=== PATIENT | male | born 1955 | race Caucasian/White ===

== ENCOUNTER 2020-06-02 14:39 | Emergency (ER) | payer OTHER, SELFPAY ==
[2020-06-02] VITALS (39 sets, daily range): BP systolic 124–147; BP diastolic 76–89; PULSE 79–110; RESP 10–27; TEMP 37; O2SAT 94–99
--- NOTE | 2020-06-02 14:30 | RT.EKG_ITS ---
APPROVED REPORT Exam: Resting ECG Patient Location: E HR:106 bpm ECG Measurements Heart Rate 106 AXIS NE 101 P 57 QRSd 108 QRS -60 QT 332 T 73 QTc 442 Conclusion Sinus tachycardia. Left anterior fascicular block. Probable left ventricular hypertrophy.
--- NOTE | 2020-06-02 15:00 | DI.RAD_ITS ---
EXAM: XR CHEST 2V PA LATERAL CLINICAL HISTORY: gen weakness, high glucose. TECHNIQUE: 2D digital imaging was performed. COMPARISON: CR LEFT SHOULDER COMPLETE from 04/30/2016 FINDINGS: Heart size is normal. The mediastinum is not widened. Lungs are clear. No infiltrates nor pleural effusions. IMPRESSION: No acute pulmonary findings. DATA REPOSITORY: RADIATION DOSE DELIVERED:
--- NOTE | 2020-06-02 15:10 | W.ED.GENAD ---
Discharge Plan Disposition Patient Disposition: HOME Condition: Stable Discharge Details Clinical Impression: Diabetes mellitus Primary Care Provider: None,None ED Provider: Brad Santiago Home Meds and New Rx's Prescriptions: New metformin 500 mg tablet 500 mg PO DAILY Qty: 30 RF: 0 cephalexin 500 mg capsule 500 mg PO TID 7 Days Qty: 21 RF: 0 Discharge Instructions Additional Instructions: I recommended and offered admission to the hospital for you which you have declined. We will ask our care management to ensure short-term follow-up for you for recheck in clinic. We will also arrange dietary consultation for you so that you may learn more about managing diabetes. Begin Metformin once daily with the evening meal. Take antibiotics as prescribed. Return to the ER for any acute concerns. Medical Decision Making 64-year-old male who states has not seen a physician in 30 years. Presents on referral from work where he was weak and seemed mildly confused. He states he has had a 10 pound weight loss over a few weeks time, increased thirst, increased frequency of urination up to every 2 hours in the daytime. Patient seen in urgent care where he was reported to be confused. He was brought to the ER by private vehicle. He arrives to the ER afebrile, blood pressure 124/84, pulse approximately 110. Most consistent with new presentation of diabetes. Must exclude dehydration, acidosis, underlying inciting infection. Additionally, patient was reported to be confused and merits a CT scan of his head. Patient IV access established, fluid bolus was initiated, referred for laboratory testing, EKG, screening chest x-ray and head CT. Diagnostics reveal no acute findings of the chest and no acute intracranial abnormality. White count 9, hematocrit 33, platelets 255. Sodium 123, potassium 4.6, chloride 88, bicarb 25, BUN 16, creatinine 1.1, glucose 331, hemoglobin A1c 10.4. Troponin negative. Urinalysis with positive nitrites, positive ketones, positive leuk esterase, no epithelial cells and numerous red and white blood cells. Culture is pending. Discussed with patient that I recommend admission for further management and evaluation. He categorically states he is unwilling to be admitted. Following 2 L of fluid, electrolytes were rechecked with improvement of his glucose and slight increase of sodium.. Patient's weight and age I do feel this is consistent with type 2 diabetes mellitus. I again recommended admission for the patient and he again declined. He states he has follow-up paperwork to establish primary care and we will ask our care management team to arrange a short-term follow-up within the next few days. We will also arrange for dietary/nutrition consultation. I will begin him on Metformin 500 mg once daily with the evening meal. He has a UTI for which she was given Rocephin and I will place him on a course of Keflex. Discussed with him the importance of short-term follow-up and to return to the ER for any acute concerns. HPI General Mode of arrival: ambulatory. Date/Time Provider Initiated Documentation: 06/02/20 14:41. Limitations to Documentation: no limitations. Information obtained by: patient. History of Present Illness 64 year old M presents to the emergency department with the chief complaint of Generalized weakness, weight loss, increased thirst, described as moderate, Quality is described as constant, Patient started experiencing this day(s) and it has been constant. No relieving factors improve symptom(s), No exacerbating factors reported . Patient notes other (Increased thirst. 10 pound weight loss. Nocturia. Increased frequency of urination during the day). Patient did receive the following treatments prior to arrival, none Related Data Home Medications Medication Instructions Recorded Confirmed cephalexin 500 mg PO TID 7 Days #21 cap 06/02/20 metformin 500 mg PO DAILY #30 tab 06/02/20 Previous Rx's Medication Instructions Recorded cephalexin 500 mg PO TID 7 Days #21 cap 06/02/20 metformin 500 mg PO DAILY #30 tab 06/02/20 Allergies Allergy/AdvReac Type Severity Reaction Status Date / Time aspirin Allergy Unverified 06/02/20 14:52 General Stated Complaint: Diabetes ADEBAYO: 3 Review of Systems Narrative: No fever, chills, cough. Denies abdominal pain. 6 systems reviewed and otherwise negative [facility]LY [facility] Social History Smoking/Tobacco Use Status: Never Smoking risk assessment performed?: Yes Alcohol Intake: never Substance use type: does not use Do you feel safe at home: Yes Do you feel safe in your relationship?: Yes Exam Narrative Exam Narrative: GEN: awake, alert, oriented 3. Pleasant, well groomed, interactive. HEAD: Normocephalic, atraumatic ENT: Mucous membranes dry, oropharynx unremarkable, External ear exam unremarkable EYES: PERRL, EOMI NECK: Full ROM, no ALINA, no menigismus CHEST/RESP: Nontender, clear to auscultation bilateral, no wheeze/rhonchi/rales CARDIOVASCULAR: Regular and tachycardic, no murmur, rub yen. 2+ Rad pulse bilateral ABDOMEN: Soft, nontender, no mass. +Bowel sounds. Testes descended bilaterally, mild scrotal erythema, no perineal irritation. Patient circumcised. EXT: Full ROM, no significant edema, no rash Neuro: Grossly normal neurologic exam, conversant, interactive. Psych: Speech fluent, thoughts congruent, affect normal Course Vital Signs Vital signs: Vital Signs Temperature 37 C 06/02/20 14:45 Pulse 110 H 06/02/20 14:45 Respiratory Rate 16 06/02/20 14:45 Blood Pressure 124/84 06/02/20 14:45 Pulse Oximetry 98 06/02/20 14:45 Temperature 37 C 06/02/20 14:45 Temperature Source Skin 06/02/20 14:45 Pulse 110 H 06/02/20 14:45 Respiratory Rate 16 06/02/20 14:45 Respiratory Effort Non-Labored 06/02/20 14:45 Blood Pressure 124/84 06/02/20 14:45 Blood Pressure Position Sitting 06/02/20 14:45 Pulse Oximetry 98 06/02/20 14:45 Oxygen Delivery Method Room Air 06/02/20 14:45 Oxygen Flow Rate 0 06/02/20 14:45 Pain Level 3 06/02/20 14:45
[2020-06-02 15:13] LABS: Abs Immature Grans 0.06 10^3/uL (0.0-0.06); Absolute Basophil Count 0.02 10^3/uL (0.0-0.2); Absolute Eosinophil Count 0.01 10^3/uL (0.0-0.7); Absolute Monocyte Count 0.54 10^3/uL (0.1-0.8); Absolute Neutrophil Count 8.17 10^3/uL (1.2-6.7); Basophils % 0.2; Eosinophils % 0.1; HCT 33.5 % (40.0-50.0); HGB 11.2 g/dL (13.5-17.5); Immature Grans % 0.6; Lymphocytes % 8.3; MCH 26.9 pg (27.0-33.0); MCHC 33.4 % (32.0-36.0); MCV 80.3 fL (80-95); MPV 9.6 fL (8.0-11.0); Monocytes % 5.6; Neutrophils % 85.2; Nucleated RBC 0 %; Platelet Count 255 10^3/uL (130-400); RBC 4.17 10^6/uL (4.36-5.78); RDW 13.3 % (11.8-14.1); RDW-SD 38.9 fL
[2020-06-02] MEDS: Normal Saline 1,000 ML 1000 ML IV ×2 (15:20→16:33)
[2020-06-02] MEDS: Normal Saline Flush 10 ML SYR IVP (15:24)
--- NOTE | 2020-06-02 15:30 | DI.CT_ITS ---
EXAM: CT HEAD WO CLINICAL HISTORY: confusion, elev glucose. TECHNIQUE: Imaging Protocol: Axial computed tomography images with coronal and sagittal reformatted images were created and reviewed COMPARISON: No exams were available for comparison FINDINGS: There are no skull fractures. There is complete there is opacification of the left frontal sinus co nsistent with acute sinusitis. Remainder of the visualized paranasal sinuses are clear, as are the v isualized aspects of the mastoid air cells. There is no evidence of intracranial hemorrhage, mass effect, or shift of midline structures. There are no extra-axial fluid collections. The ventricles are not enlarged or shifted and there is no blo od within the ventricular system nor within the basal cisterns. IMPRESSION: No acute intracranial findings on this noninfused CT scan of the brain. However, there is opacification left frontal sinus consistent with frontal sinusitis testing This study was read by [facility] RADIATION DOSE DELIVERED: 723.66mGy.cm Total DLP DATA REPOSITORY: All CT scans at this facility are submitted to the National Radiology Data Registry (NRDR) Dose Index Registry (DIR) with the [employer] (A[employer]). RADIATION OPTIMIZATION: All CT scans at this facility use at least one of these dose optimization te chniques: automated exposure control; mA and/or kV adjustment per patient size (includes targeted exa ms where dose is matched to clinical indication); or iterative reconstruction. Was 1st read by [facility]
[2020-06-02 15:34] LABS: ALT 37 U/L (16-63); AST 31 U/L (15-37); Albumin 2.7 g/dL (3.4-5.0); Alkaline Phosphatase 91 U/L (46-116); Anion Gap 9.1 mmol/L (3-11); BUN 16 mg/dL (7-18); CO2 25.9 mmol/L (21.0-32.0); CREATININE 1.14 mg/dL (0.70-1.30); Calcium 8.7 mg/dL (8.5-10.1); Chloride 88 mmol/L (98-107); Glucose 331 mg/dL (74-106); Magnesium 1.8 mg/dL (1.8-2.4); Potassium 4.6 mmol/L (3.5-5.1); Total Protein 7.8 g/dL (6.4-8.2)
[2020-06-02 15:35] LABS: Bilirubin Negative (Negative); Blood Large (Negative); Clarity Cloudy (Clear); Glucose >=1000 mg/dL (Negative); Ketones 15 mg/dL (Negative); Leukocyte Esterase Large (Negative); Nitrite Positive (Negative); Urobilinogen 0.2 EU/dL (Up TO 0.2)
[2020-06-02 15:37] LABS: Sodium 123 mmol/L (136-145); Troponin I < 0.05 ng/mL (<0.06)
[2020-06-02 15:44] LABS: Bacteria Many HPF (Negative); Casts Negative LPF (Negative); Crystals Negative HPF (Negative); Epithelial Cells Negative HPF (Negative); Mucus Negative (Negative); RBC 20-50 HPF (0-2); WBC >50 HPF (0-5)
[2020-06-02 15:45] LABS: C & S Indicated? Yes
[2020-06-02 16:04] LABS: Hemoglobin A1C 10.4 % (<5.7)
--- NOTE | 2020-06-02 16:19 | DI.VRAD_ITS ---
PROCEDURE INFORMATION: Exam: CT Head Without Contrast Exam date and time: 06/02/2020 3:37 PM Age: 64 years old Clinical indication: Altered mental status/memory loss; Confusion or disorientation; Patient HX: Confusion, elevated glucose TECHNIQUE: Imaging protocol: Computed tomography of the head without contrast. COMPARISON: No relevant prior studies available. FINDINGS: Brain: Normal. No hemorrhage. Unremarkable white matter. No mass effect. Cerebral ventricles: No ventriculomegaly. Bones/joints: Unremarkable. No acute fracture. Paranasal sinuses: Visualized sinuses are unremarkable. No fluid levels. Mastoid air cells: Visualized mastoid air cells are well aerated. Soft tissues: Unremarkable. IMPRESSION: No acute intracranial abnormality. Dictated and Authenticated by: Akila Mora MD. Ordering:ANTONY Salinas MD
--- NOTE | 2020-06-02 16:27 | DI.VRAD_ITS ---
PROCEDURE INFORMATION: Exam: XR Chest, 2 Views Exam date and time: 06/02/2020 4:17 PM Age: 64 years old Clinical indication: Patient HX: Gen weakness/high glucose TECHNIQUE: Imaging protocol: XR of the chest Views: 2 views. COMPARISON: No relevant prior studies available. FINDINGS: Lungs: Unremarkable. No consolidation. Pleural space: Unremarkable. No pleural effusion. No pneumothorax. Heart/Mediastinum: Unremarkable. No cardiomegaly. Bones/joints: Unremarkable. IMPRESSION: No acute findings. Dictated and Authenticated by: Akila Mora MD. Ordering:ANTONY Salinas MD
[2020-06-02] MEDS: cefTRIAXone 1 GM/50 ML BAG IVPB (16:30)
--- NOTE | 2020-06-02 17:44 | NUR.NOTE ---
faxed referral to [facility] for pcp and cm for a sewer hand Nursing Note:
[2020-06-02 18:01] LABS: Anion Gap 6.3 mmol/L (3-11); BUN 14 mg/dL (7-18); CO2 27.7 mmol/L (21.0-32.0); Chloride 92 mmol/L (98-107); Glucose 276 mg/dL (74-106); Potassium 3.9 mmol/L (3.5-5.1); Sodium 126 mmol/L (136-145)
[2020-06-02] MEDS: metFORMIN 500 MG TAB PO (18:20)
--- NOTE | 2020-06-03 09:06 | CMPROGNOTE_ITS ---
- If Service Date Differs Date of service: 06/03/20 Time of Service: 09:06 Care Management Progress Note Brennen is seen in the ED on 06/02/20 and is found to have a new onset of diabetes. At the request of Dr. Santiago, ED provider, [facility] contacts [facility] to obtain a follow up appointment for Brennen. OLEG speaks with Saida Ellison, Community Slip Operator, who provides an appointment for today, Wednesday, June 03, 2020, at 3:15 pm. OLEG also leaves a message for Tita Guzman, [facility] art educator, asking she outreach to Brennen as soon as possible.
--- NOTE | 2020-06-04 14:37 | W.ED.FU ---
I reviewed good patient note from 02 June 2020 [employer] on Augmentin and Keflex, he was only taking Keflex and I reviewed his sensitivity for urinalysis and he will need a change of antibiotics from Keflex shear cefdinir, I called in a prescription to any pharmacy in [place] for her cefdinir 300 p.o. twice daily for 7 days patient is aware that he should follow up with his primary care physician in 24 to 48 hours return earlier should he have worsening sx. He states he is overall feeling improved
== END 2020-06-02 18:47 | disposition home or self-care (01) ==
PROVIDERS: Emergency Provider Emergency Medicine; PCP Physician Assistant
DX: E11.65 Type 2 diabetes mellitus with hyperglycemia (principal); N39.0 Urinary tract infection, site not specified; B95.2 Enterococcus as the cause of diseases classified elsewhere
CPT/HCPCS: 36415; 36416; 80048; 80053; 82962; 87077; 93005; 96361; 96365; 99285; 70450; 71046; 81003; 81015; 83036; 83735; 84484; 85025; 87086; 87186; 93010; J0696